=== PATIENT | male | born 1955 | race Caucasian/White ===

== ENCOUNTER → 2018-05-06 | Outpatient (CLI) | payer BC ==
[2018-05-06 10:42] LABS: BASOPHILS # (AUTO) 0.1 10^3/uL (0.0-0.1); BASOPHILS % (AUTO) 1 % (0-10); EOSINOPHILS # (AUTO) 0.3 10^3/uL (0.0-0.3); EOSINOPHILS % (AUTO) 5 % (0-10); HEMATOCRIT 42 % (40-54); HEMOGLOBIN 14.4 G/DL (13.3-17.7); LYMPHOCYTES # (AUTO) 1.7 X 10^3 (1.0-4.0); LYMPHOCYTES % (AUTO) 30 % (12-44); MEAN CORPUSCULAR HEMOGLOBIN 30 PG (25-34); MEAN CORPUSCULAR HGB CONC 34 G/DL (32-36); MEAN CORPUSCULAR VOLUME 86 FL (80-99); MEAN PLATELET VOLUME 9.3 FL (7.4-10.4); MONOCYTES # (AUTO) 0.5 X 10^3 (0.0-1.0); MONOCYTES % (AUTO) 10 % (0-12); NEUTROPHILS # (AUTO) 3.1 X 10^3 (1.8-7.8); NEUTROPHILS % (AUTO) 54 % (42-75); PLATELET COUNT 299 10^3/uL (130-400); RED BLOOD COUNT 4.88 10^6/uL (4.35-5.85); RED CELL DISTRIBUTION WIDTH 12.1 % (10.0-14.5); WHITE BLOOD COUNT 5.6 10^3/uL (4.3-11.0)
--- NOTE | 2018-05-06 12:26 | Diagnostic Imaging Report ---
PA and lateral chest at 1108 hours. INDICATION: Cough, congestion. There are no prior studies available for comparison. FINDINGS: Heart size is within normal limits. The lungs are clear. There is no evidence for failure, pneumonia or for pleural effusion to suggest an acute abnormality. On the PA view, however, there are 2 well-circumscribed roughly 2 cm oval densities overlying the left lung base. Reportedly, the patient has 2 cough lozenges in his shirt pocket. The mediastinum is not widened. The osseous structures are intact. IMPRESSION: 1. There is no evidence for an acute cardiopulmonary abnormality. 2. The 2 oval densities overlying the left lung base seen on the PA view are felt to be related to the cough lozenges in the patient's shirt pocket. Dictated by: Dictated on workstation # [id number]
== END ==
LOC: RAD 10:24
PROVIDERS: ATTEND Family Medicine
DX: R91.8 Other nonspecific abnormal finding of lung field (principal); R05 Cough
CPT/HCPCS: 36415; 71046; 85025

== ENCOUNTER → 2018-08-05 | Outpatient (CLI) | payer BC ==
--- NOTE | 2018-08-05 18:24 | Diagnostic Imaging Report ---
INDICATION: Fall with left-sided rib pain. AP and oblique views of the left ribs are obtained. There is no underlying pneumothorax or pleural fluid. The left ribs appear intact with no overt fracture. IMPRESSION: Negative left ribs. Dictated by: Dictated on workstation # [id number]
--- NOTE | 2018-08-05 18:29 | Diagnostic Imaging Report ---
INDICATION: Fall with pain in chest. PA and lateral chest obtained at 5:15 p.m. and compared to 05/06/2018. FINDINGS: Heart and mediastinal silhouette are normal in appearance. The lungs are clear. There is no pneumothorax or pleural fluid. There is no overt bony abnormality in the chest. IMPRESSION: Negative chest. Dictated by: Dictated on workstation # [id number]
== END ==
LOC: RAD 16:42
PROVIDERS: ATTEND Family Medicine
DX: R07.81 Pleurodynia (principal); R07.9 Chest pain, unspecified; R06.02 Shortness of breath; W19.XXXA Unspecified fall, initial encounter
CPT/HCPCS: 71046; 71100

== ENCOUNTER → 2018-12-01 | Outpatient (CLI) | payer BC ==
[~2018-12-01] VITALS: Ht 177.8 cm; Wt 84.4 kg
[~2018-12-01] MED LIST: CATHETER FLUSH 10 ML SYR IV PRN; REGADENOSON 0.4 MG/5 ML SYR (LEXISCAN) IV ONE
[2018-12-01 13:23] VITALS: BP 150/88
[2018-12-01 13:24] VITALS: BP 150/85
== END ==
LOC: CARD 11:48
PROVIDERS: ATTEND Internal Medicine Cardiovascular Disease
DX: I25.10 Atherosclerotic heart disease of native coronary artery without angina pectoris (principal); E11.9 Type 2 diabetes mellitus without complications; R06.02 Shortness of breath
CPT/HCPCS: 78452; 93017

== ENCOUNTER 2019-05-28 17:09 | Observation (INO) | payer BC ==
[2019-05-28] VITALS (7 sets, daily range): BP systolic 105–137; BP diastolic 70–86
[~2019-05-28] VITALS: Ht 70 cm; Wt 83.6 kg
--- NOTE | 2019-05-28 17:26 | ED Chest Pain ---
General Stated Complaint: CP Source: patient, family Exam Limitations: no limitations History of Present Illness Date Seen by Provider: May 28, 2019 Time Seen by Provider: 17:21 Initial Comments This 64-year-old white male presents with pressure type anterior chest pain that began an hour and half prior to presentation when supine. The patient who is diabetic described as a pressure type chest pain as severe in intensity. There is no remarkable radiation. Patient experienced associated shortness of breath. Patient denied significant radiation of his chest pain. The patient has had no associated fever or chills. He has been evaluated by cardiology with a cardiac scan but not a cardiac catherization. Patient states that he has had a great deal of stress recently. Allergies and Home Medications Allergies Coded Allergies: No Known Drug Allergies (Unverified , 03/08/15) Patient Home Medication List Home Medication List Reviewed: Yes Review of Systems Review of Systems Constitutional: No chills, No fever EENTM: No Blurred Vision Respiratory: Denies Cough, Denies SOA With Exertion Cardiovascular: See HPI, Chest Pain; Denies Irregular Heart Rate Gastrointestinal: Denies Abdominal Pain, Denies Diarrhea, Denies Vomiting Genitourinary: Denies Burning, Denies Frequency Musculoskeletal: No back pain Skin: No rash Psychiatric/Neurological: See HPI, Anxiety Past Kswyydo-Kzsgba-Outqtf Hx Past Med/Social Hx: Reviewed Nursing Past Med/Soc Hx Patient Social History Recent Foreign Travel: No Contact w/Someone Who Travel: No Past Medical History Diabetes, Insulin dep Physical Exam Vital Signs Vital Signs - First Documented Capillary Refill : Height, Weight, BMI Height: 5'10.00" Weight: 186lbs. 0.0oz. 84.799715vg; 26.7 BMI Method:Estimated General Appearance: WD/WN, Anxious, Moderate Distress HEENT: Normal ENT Inspection Neck: Normal Inspection Respiratory: Lungs Clear, Normal Breath Sounds Cardiovascular: Regular Rate, Rhythm, No Edema, No Murmur Gastrointestinal: Normal Bowel Sounds, No Pulsatile Mass, Non Tender, Soft Extremity: Normal Capillary Refill, Normal Inspection, Normal Range of Motion, Non Tender Neurologic/Psychiatric: Alert, Oriented x3, No Motor/Sensory Deficits, Normal Mood/Affect Skin: Normal Color, Warm/Dry Progress/Results/Core Measures Results/Orders Lab Results Laboratory Tests Test 05/28/19 17:15 05/28/19 17:16 Range/Units White Blood Count 10.1 4.3-11.0 10^3/uL Red Blood Count 5.58 4.35-5.85 10^6/uL Hemoglobin 16.3 13.3-17.7 G/DL Hematocrit 47 40-54 % Mean Corpuscular Volume 83 80-99 FL Mean Corpuscular Hemoglobin 29 25-34 PG Mean Corpuscular Hemoglobin Concent 35 32-36 G/DL Red Cell Distribution Width 12.5 10.0-14.5 % Platelet Count 361 130-400 10^3/uL Mean Platelet Volume 9.6 7.4-10.4 FL Neutrophils (%) (Auto) 46 42-75 % Lymphocytes (%) (Auto) 40 12-44 % Monocytes (%) (Auto) 11 0-12 % Eosinophils (%) (Auto) 2 0-10 % Basophils (%) (Auto) 1 0-10 % Neutrophils # (Auto) 4.7 1.8-7.8 X 10^3 Lymphocytes # (Auto) 4.0 1.0-4.0 X 10^3 Monocytes # (Auto) 1.2 H 0.0-1.0 X 10^3 Eosinophils # (Auto) 0.2 0.0-0.3 10^3/uL Basophils # (Auto) 0.1 0.0-0.1 10^3/uL Prothrombin Time 13.1 12.2-14.7 SEC INR Comment 1.0 0.8-1.4 Activated Partial Thromboplast Time 27 24-35 SEC D-Dimer 0.57 H 0.00-0.49 UG/ML Sodium Level 139 135-145 MMOL/L Potassium Level 3.9 3.6-5.0 MMOL/L Chloride Level 106 98-107 MMOL/L Carbon Dioxide Level 21 21-32 MMOL/L Anion Gap 12 5-14 MMOL/L Blood Urea Nitrogen 15 7-18 MG/DL Creatinine 1.18 0.60-1.30 MG/DL Estimat Glomerular Filtration Rate > 60 BUN/Creatinine Ratio 13 Glucose Level 367 H 70-105 MG/DL Calcium Level 9.6 8.5-10.1 MG/DL Corrected Calcium 9.4 8.5-10.1 MG/DL Magnesium Level 2.1 1.6-2.4 MG/DL Total Bilirubin 0.3 0.1-1.0 MG/DL Aspartate Amino Transf (AST/SGOT) 15 5-34 U/L Alanine Aminotransferase (ALT/SGPT) 18 0-55 U/L Alkaline Phosphatase 55 40-136 U/L Myoglobin 49.5 10.0-92.0 NG/ML Troponin I < 0.028 <0.028 NG/ML B-Type Natriuretic Peptide 27.4 <100.0 PG/ML Total Protein 7.5 6.4-8.2 GM/DL Albumin 4.3 3.2-4.5 GM/DL Glucometer 315 H 70-110 MG/DL My Orders Orders - CHRISTIANE, ANNABELLA Bowles MD Cbc With Automated Diff (05/28/19 17:17) Magnesium (05/28/19 17:17) Chest 1 View, Ap/Pa Only (05/28/19 17:17) Ekg Tracing (05/28/19 17:17) Cardiac Profile 1 (05/28/19 17:17) Comprehensive Metabolic Panel (05/28/19 17:17) Myoglobin Serum (05/28/19 17:17) Protime With Inr (05/28/19 17:17) Partial Thromboplastin Time (05/28/19 17:17) O2 (05/28/19 17:17) Monitor-Rhythm Ecg Trace Only (05/28/19 17:17) Lipid Panel (05/29/19 06:00) Ed Iv/Invasive Line Start (05/28/19 17:17) BNP (05/28/19 17:17) Fibrin Degradation Products (05/28/19 17:17) Nitroglycerin 0.4 Mg Btl 25's (Nitrostat (05/28/19 17:30) Aspirin Chewable Tablet (Baby Aspirin Ch (05/28/19 17:30) Ns Iv 1000 Ml (Sodium Chloride 0.9%) (05/28/19 17:30) Oxygen-Administer (05/28/19 17:17) Lorazepam Injection (Ativan Injection) (05/28/19 17:30) Medications Given in ED Current Medications Medications Dose Ordered Sig/Dante Route Start Time Stop Time Status Last Admin Dose Admin Aspirin 324 mg ONCE ONCE PO 05/28/19 17:30 05/28/19 17:31 DC 05/28/19 17:37 324 MG Lorazepam 1 mg ONCE ONCE IVP 05/28/19 17:30 05/28/19 17:31 DC 05/28/19 17:36 1 MG Nitroglycerin 0.4 mg UD PRN SL 05/28/19 17:30 05/28/19 17:37 0.4 MG Vital Signs/I&O 05/28/19 05/28/19 17:15 17:15 Temp 36.2 Pulse 103 Resp 28 B/P (MAP) 159/87 (111) Pulse Ox 100 O2 Delivery Nasal Cannula Nasal Cannula O2 Flow Rate 2.00 2.0 Progress Progress Note : Time: 17:25 Progress Note Patient's initial EKG demonstrated a normal sinus rhythm. No acute current of injury was noted. An evaluation was undertaken. Patient was given aspirin and nitroglycerin. The patient was having significant anxiety and 1 mg of Ativan IV was given. 625 p.m. The patient was significantly improved at the time of disposition. I called Dr. Seay who felt it was prudent to observe the patient overnight and perform an echo in the morning. Dr. Emmanuel was kind enough to admit the patient to cardiac stepdown. Departure Communication (Admissions) Time/Spoke to Admitting Phy: 18:26 Dr. Emmanuel Time/Spoke to Consulting Phy: 18:26 Dr. Seay. Impression Primary Impression: Chest pain Qualified Codes: R07.9 - Chest pain, unspecified Additional Impression: Diabetes mellitus Qualified Codes: E10.9 - Type 1 diabetes mellitus without complications Disposition: ADMITTED INPATIENT Condition: Improved Admissions Decision to Admit Reason: Admit from ER (General) Decision to Admit/Date: May 28, 2019 Time/Decision to Admit Time: 18:27 Departure-Patient Inst. Referrals: RICHI SHANNON DO (PCP/Family) Primary Care Physician ANNABELLA GRANDE MD May 28, 2019 17:25
[2019-05-28 17:28] LABS: BASOPHILS # (AUTO) 0.1 10^3/uL (0.0-0.1); BASOPHILS % (AUTO) 1 % (0-10); EOSINOPHILS # (AUTO) 0.2 10^3/uL (0.0-0.3); EOSINOPHILS % (AUTO) 2 % (0-10); HEMATOCRIT 47 % (40-54); HEMOGLOBIN 16.3 G/DL (13.3-17.7); LYMPHOCYTES % (AUTO) 40 % (12-44); MEAN CORPUSCULAR HEMOGLOBIN 29 PG (25-34); MEAN CORPUSCULAR HGB CONC 35 G/DL (32-36); MEAN CORPUSCULAR VOLUME 83 FL (80-99); MEAN PLATELET VOLUME 9.6 FL (7.4-10.4); MONOCYTES # (AUTO) 1.2 X 10^3 (0.0-1.0); MONOCYTES % (AUTO) 11 % (0-12); NEUTROPHILS # (AUTO) 4.7 X 10^3 (1.8-7.8); NEUTROPHILS % (AUTO) 46 % (42-75); PLATELET COUNT 361 10^3/uL (130-400); RED CELL DISTRIBUTION WIDTH 12.5 % (10.0-14.5); WHITE BLOOD COUNT 10.1 10^3/uL (4.3-11.0)
[2019-05-28] MEDS ORDERED: ASPIRIN 81 MG CHEW (CHILDREN'S ASA) PO ONE (17:30)
[2019-05-28] MEDS ORDERED: LORazepam INJ 2 MG/ML (ATIVAN) VIAL IVP ONE (17:30)
[2019-05-28] MEDS ORDERED: NS IV 1000 ML 1,000 ML IV SCH ×2 (17:30→20:00)
[2019-05-28] MEDS ORDERED: NITROGLYCERIN 0.4 MG SL TABS BTL 25'S SL PRN ×2 (17:30→20:00)
[2019-05-28 17:42] LABS: PROTHROMBIN TIME PATIENT 13.1 SEC (12.2-14.7)
[2019-05-28 17:45] LABS: ALANINE AMINOTRANSFERASE 18 U/L (0-55); ALBUMIN 4.3 GM/DL (3.2-4.5); ALKALINE PHOSPHATASE 55 U/L (40-136); BILIRUBIN,TOTAL 0.3 MG/DL (0.1-1.0); BUN/CREATININE RATIO 13; CALCIUM 9.6 MG/DL (8.5-10.1); CARBON DIOXIDE 21 MMOL/L (21-32); CHLORIDE 106 MMOL/L (98-107); CREATININE SERUM 1.18 MG/DL (0.60-1.30); GFR ESTIMATED > 60; GLUCOSE 367 MG/DL (70-105); MAGNESIUM 2.1 MG/DL (1.6-2.4); POTASSIUM 3.9 MMOL/L (3.6-5.0); SODIUM 139 MMOL/L (135-145); TOTAL PROTEIN 7.5 GM/DL (6.4-8.2)
[2019-05-28] MEDS ORDERED: INSU100V16 (17:57)
[2019-05-28] MEDS ORDERED: INSU100I29 (17:57)
--- NOTE | 2019-05-28 18:20 | Diagnostic Imaging Report ---
INDICATION: Chest pressure with shortness of air today. FINDINGS: Frontal view of the chest demonstrates the lungs to be clear. Heart, mediastinum, pulmonary vascularity and visualized bony thorax are normal. IMPRESSION: Negative chest. Dictated by: Dictated on workstation # [id number]
[2019-05-28] MEDS ORDERED: NITROGLYCERIN 2% OINT 1 GM UNIT DOSE PACKET TOP NR (20:00)
[2019-05-28] MEDS ORDERED: TICAGRELOR 90 MG TABLET (BRILINTA) PO NR (20:00)
[2019-05-28] MEDS ORDERED: LORazepam INJ 2 MG/ML (ATIVAN) VIAL IV PRN (20:00)
--- NOTE | 2019-05-28 20:00 | NUR ---
DEVON JOYNER admitted to room CU3-1, with an admitting diagnosis of chest pain, on 05/28/19 from [place] via , accompanied by .DEVON JOYNER introduced to surroundings, call light, bed controls, phone, TV, temperature control, lights, meal times, smoking policy, visitor policy, side rail policy, bathrooms and showers. Patient Rights given to patient in the handbook. DEVON JOYNER verbalizes understanding that [facility] is not responsible for the loss or damage to any personal effects or valuables that are kept in the patients posession during their hospitalization. The following Patient Care Plans were discussed with the : Discharge Planning, ,, and . DEVON JOYNER verbalizes understanding of Interdisciplinary Patient Education. Patient and/or family were informed about the Rapid Response Team and its purpose.
[2019-05-28] MEDS: inSUlin ASPART (NovoLOG) 1 UNIT/0.01 ML (CHARGE PER UNIT) SC SCH (21:15)
[2019-05-29] VITALS: BP 114/79
[2019-05-29 03:35] LABS: CHOLESTEROL 164 MG/DL (< 200); CREATINE KINASE 106 U/L (30-200); HDL CHOLESTEROL 39 MG/DL (40-60); TRIGLYCERIDES 73 MG/DL (<150); VLDL CHOLESTEROL 15 MG/DL (5-40)
[2019-05-29 04:00] VITALS: BP 131/87
[2019-05-29] MEDS ORDERED: inSUlin ASPART (NovoLOG) 1 UNIT/0.01 ML (CHARGE PER UNIT) SC SCH (06:00)
[2019-05-29] MEDS: inSUlin ASPART (NovoLOG) 1 UNIT/0.01 ML (CHARGE PER UNIT) SC SCH ×2 (06:57→12:41)
[2019-05-29 08:00] VITALS: BP 114/65
--- NOTE | 2019-05-29 08:35 | NUR ---
PT REQUEST BLOOD SUGAR CHECK BECAUSE HE THINKS ITS LOW, BLOOD SUGAR 53, PT NPO, D50 SYRINGE GIVEN AT THIS TIME. WILL CONTINUE TO MONITOR AND RECHECK BLOOD SUGAR.
[2019-05-29] MEDS ORDERED: DEXTROSE 50% 50 ML (IMS) SYR IV ONE (08:45)
[2019-05-29] MEDS ORDERED: ASPIRIN E.C. 81 MG (ECOTRIN) TAB PO SCH (09:00)
--- NOTE | 2019-05-29 12:23 | Short Stay Summary-Hospitalist ---
History of Present Illness HPI/Chief Complaint Pt is a 64yoCM with a PMH of IDDMI who presented to the ER due to shortness of breath. He states his symptoms started roughly 6 months ago and they were worked up for a cardiac cause with Dr Bhatti. He had an echo and a stress test and those were all normal. They went away for a while but two weeks ago he had intermittent dyspnea. Yesterday he was outside with his son working and suddenly developed shortness of breath and fell backward. He did not lose consciousness. He did not have chest pain, nausea, diaphoresis, or radiation of symptoms. He did feel anxious. He reports his blood sugars and normally ok but his a1c runs around 8-9. Source: patient Date Seen 05/29/19 Time Seen by a Provider: 12:18 Attending Physician Teddy Emmanuel MD PCP Marcin Sheffield DO Referring Physician Date of Admission May 28, 2019 at 18:15 Home Medications & Allergies Home Medications Reviewed patient Home Medication Reconciliation performed by pharmacy medication reconciliations hospital pharmacy technician and/or nursing. Patients Allergies have been reviewed. Allergies Allergies Coded Allergies No Known Drug Allergies (Unverified03/08/15) Past Pawopge-Mhgnvy-Ewiakl Hx Past Med/Social Hx: Reviewed Nursing Past Med/Soc Hx Patient Social History Marrital Status: Alcohol Use: Denies Use Recreational Drug Use: No Smoking Status: Never a Smoker Recent Foreign Travel: No Contact w/other who traveled: No Recent Hopitalizations: No Recent Infectious Disease Expo: No Past Medical History Surgeries: Abdominal, Orthopedic Endocrine: Diabetes, Insulin dep (type 1) Family History Reviewed Nursing Family Hx No Pertinent Family Hx Review of Systems Constitutional: No diaphoresis, No dizziness, No weakness EENTM: no symptoms reported Respiratory: No cough, No dyspnea on exertion, No hemoptysis, No phlegm; short of breath; No wheezing Cardiovascular: No chest pain, No edema, No Hx of Intervention, No palpitations, No syncope Gastrointestinal: no symptoms reported Genitourinary: no symptoms reported Musculoskeletal: no symptoms reported Skin: no symptoms reported Psychiatric/Neurological: Anxiety Physical Exam Physical Exam Vital Signs Vital Signs - First Documented 05/28/19 17:15 FiO2 99 Capillary Refill : Less Than 3 Seconds Height, Weight, BMI Height: 5'10.00" Weight: 186lbs. 0.0oz. 84.497247ax; 170.61 BMI Method:Estimated General Appearance: No Apparent Distress, WD/WN, Anxious HEENT: Normal ENT Inspection Neck: Normal Inspection Respiratory: Lungs Clear, Normal Breath Sounds Cardiovascular: Regular Rate, Rhythm, No Edema, No Murmur Gastrointestinal: Normal Bowel Sounds, Non Tender, Soft; No Distended, No Guarding, No Tenderness Extremity: Normal Capillary Refill, Normal Inspection, Normal Range of Motion, Non Tender Neurologic/Psychiatric: Alert, Oriented x3, Normal Mood/Affect Skin: Normal Color, Warm/Dry Results Results/Procedures Labs Laboratory Tests 05/28/19 17:15 Patient resulted labs reviewed. Imaging: Reviewed Imaging Report Short Stay Diagnosis Discharge Diagnosis-Short Stay Admission Diagnosis Shortness of Breath Final Discharge Diagnosis Panic Attack Conclusion Plan Shortness of breath Likely due to panic attack Given history of poorly controlled DM observed overnight troponins negative echo ordered Discussed with Cardiology who agrees this is likely related to anxiety Will start on hydroxyzine and advised to follow up with his PCP Dr Sheffield Can DC home in echo normal Clinical Quality Measures AMI/AHF: ASA po Prior to arrival: No DVT/VTE Risk/Contraindication: Risk Factor Score Per Nursin RFS Level Per Nursing on Admit: 2=Moderate TEDDY EMMANUEL MD May 29, 2019 12:23
[2019-05-29] MEDS ORDERED: hydrOXYzine (ATARAX) 10 MG TAB PO PRN (12:30)
[2019-05-29] MEDS ORDERED: HYDR-3584 PO (12:32)
--- NOTE | 2019-05-29 12:34 | Discharge Inst-Simple/Standard ---
Discharge Inst-Standard Discharge Medications New, Converted or Re-Newed RX: Transmitted to Pharmacy Patient Instructions/Follow Up Plan of Care/Instructions/FU: Please continue to your medication at written. Please follow up with your PCP in 1 week. Activity as Tolerated: Yes Discharge Diet: ADA Diet Return to The Hospital For: Chest pain, SOB, if you feel you are getting worse. Planned Outpatient Orders/Ref. Pneu Vac Indicated: Yes TEDDY DIAZ MD May 29, 2019 12:34
--- NOTE | 2019-05-29 13:28 | Consultation-Cardiology ---
HPI-Cardiology Cardiology Consultation: Date of Consultation 05/29/19 Date of Admission Attending Physician Ilene Emmanuel MD Admitting Physician Marcin Sheffield DO Consulting Physician Jesse SEAY MD HPI: Time Seen by a Provider: 12:00 Chief Complaint: Shortness of breath, chest pressure This is a 64-year-old gentleman who sees Dr. Bhatti as an outpatient. He presents with complain of shortness of breath with chest tightness. He has history of diabetes. He denies smoking. No significant family history. He had a negative nuclear stress test in December 2018. Substernal chest pressure mild to moderate intensity. No radiation. No exacerbation or relieving factors. No associated syncope, near-syncope. Associated with shortness of breath. Significant stress recently. Review of Systems-Cardiology Review of Systems Constitutional: As described under HPI; No As described under HPI, No no symptoms reported, No chills, No fever, No lightheadedness Eyes: No As described under HPI, No no symptoms reported, No blindness, No blurred vision, No contact lenses, No drainage, No decreased acuity, No foreign body sensation, No pain, No vision change Ears/Nose/Throat: No As described under HPI, No no symptoms reported, No chronic hearing loss, No ear discharge, No ear pain, No nasal drainage, No ulcerations Respiratory: No no symptoms reported; As described under HPI; No As described under HPI, No cough, No orthopnea; shortness of breath; No SOB with excertion Cardiovascular: No no symptoms reported; As described under HPI; No As described under HPI; chest pain; No edema, No irregular heart rate, No lightheadedness, No palpitations Gastrointestinal: No no symptoms reported, No As described under HPI, No abdomen distended, No abdominal pain, No blood streaked bowels, No constipation, No diarrhea, No nausea, No vomiting, No stool coloration changes Genitourinary: No As described under HPI, No burning, No dysuria, No discharge, No frequency, No flank pain, No hematuria, No urgency Skin: No rash, No skin related problems, No ulcerations Psychiatric/Neurological: No anxiety, No depression, No seizure, No focal weakness, No syncope Hematologic: No bleeding abnormalities CAM-Ksahkd-Eldzpr Hx Patient Social History Marrital Status: Alcohol Use: Denies Use Recreational Drug Use: No Smoking Status: Never a Smoker Recent Foreign Travel: No Recent Infectious Disease Expo: No Hospitalization with Isolation: Denies Past Medical History PMH As described under Assessment. Allergies and Home Medications Allergies Coded Allergies: No Known Drug Allergies (Unverified , 03/08/15) Patient Home Medication List Home Medication List Reviewed: Yes Physical Exam-Cardiology Physical Exam Vital Signs/I&O 05/29/19 05/29/19 05/29/19 05/29/19 04:00 04:00 04:00 07:00 Temp 36.4 Pulse 89 74 Resp 20 B/P (MAP) 131/87 (102) Pulse Ox 99 99 O2 Delivery Room Air Room Air FiO2 99 05/29/19 05/29/19 05/29/19 05/29/19 08:00 08:00 08:00 12:00 Temp 36.2 36.4 Pulse 78 71 Resp 14 19 B/P (MAP) 114/65 (81) Pulse Ox 99 100 O2 Delivery Room Air Room Air Room Air Room Air 05/29/19 00:00 Intake Total 1250 ml Output Total 400 ml Balance 850 ml Capillary Refill : Less Than 3 Seconds Constitutional: appears stated age, AAO x 3; No apparent distress; well- developed, well-nourished HEENT: PERRL; No discharge; hearing is well preserved, oral hygience is good; No ulceration, No xanthelasmas are seen Neck: No carotid bruit; carotid pulses are 2 + bilaterally Respiratory: chest is bilaterally symmetric, lungs clear to auscultation Cardiovascular: regular rate-rhythm, S1 and S2 Gastrointestinal: soft, round, audible bowel sounds; No spleenomegaly Rectal: deferred Extremities: normal range of motion, non-tender, normal inspection; No clubbing, No cyanosis; no lower extremity edema bilateral; No significant edema Neurologic/Psychiatric: no motor/sensory deficits, alert, normal mood/affect, oriented x 3, power is 5/5 both on sides Skin: normal color; No rash, No ulcerations Data Review Labs Laboratory Tests 05/28/19 17:15: White Blood Count 10.1, Red Blood Count 5.58, Hemoglobin 16.3, Hematocrit 47, Mean Corpuscular Volume 83, Mean Corpuscular Hemoglobin 29, Mean Corpuscular Hemoglobin Concent 35, Red Cell Distribution Width 12.5, Platelet Count 361, Mean Platelet Volume 9.6, Neutrophils (%) (Auto) 46, Lymphocytes (%) (Auto) 40, Monocytes (%) (Auto) 11, Eosinophils (%) (Auto) 2, Basophils (%) (Auto) 1, Neutrophils # (Auto) 4.7, Lymphocytes # (Auto) 4.0, Monocytes # (Auto) 1.2H, Eosinophils # (Auto) 0.2, Basophils # (Auto) 0.1, Prothrombin Time 13.1, INR Comment 1.0, Activated Partial Thromboplast Time 27, D-Dimer 0.57H, Sodium Level 139, Potassium Level 3.9, Chloride Level 106, Carbon Dioxide Level 21, Anion Gap 12, Blood Urea Nitrogen 15, Creatinine 1.18, Estimat Glomerular Filtration Rate > 60, BUN/Creatinine Ratio 13, Glucose Level 367H, Calcium Level 9.6, Corrected Calcium 9.4, Magnesium Level 2.1, Total Bilirubin 0.3, Aspartate Amino Transf (AST/SGOT) 15, Alanine Aminotransferase (ALT/SGPT) 18, Alkaline Phosphatase 55, Myoglobin 49.5, Troponin I < 0.028, B-Type Natriuretic Peptide 27.4, Total Protein 7.5, Albumin 4.3 05/28/19 17:16: Glucometer 315H 05/28/19 21:08: Glucometer 305H 05/28/19 21:10: Troponin I < 0.028 05/29/19 03:03: Total Creatine Kinase 106, Triglycerides Level 73, Cholesterol Level 164, LDL Cholesterol Direct 114, VLDL Cholesterol 15, HDL Cholesterol 39L 05/29/19 06:35: Glucometer 82 05/29/19 08:32: Glucometer 53*L 05/29/19 09:07: Glucometer 103 05/29/19 11:24: Glucometer 71 ECG Impression ECG Initial ECG Rhythm: Normal Sinus Initial ECG Impression: Normal A/P-Cardiology Assessment/Admission Diagnosis Shortness of breath, chest pain, positive D dimer, diabetes Plan Shortness of breath, negative BNP. Not in florid congestive heart failure. Will recommend an echocardiogram. chest pain, serial troponin negative. Recent nuclear stress test which is negative. I discussed at length with the patient. He can be discharged to follow-up with Dr. Bhatti on Friday. positive D dimer, oxygen saturation 99 percent on room air. Normal heart rate. Very unlikely pulmonary embolism. diabetes, continue outpatient medical therapy. Thank you for your consultation. Please call me if you have any questions. Kim Seay MD, FACP, FACC, FSCAI, FHRS, CCDS Interventional Cardiology Cardiac Electrophysiology Vascular Medicine and Endovascular Interventions Clinical Quality Measures AMI/AHF: ASA po Prior to arrival: No DVT/VTE Risk/Contraindication: Risk Factor Score Per Nursin RFS Level Per Nursing on Admit: 2=Moderate Jesse SEAY MD May 29, 2019 13:28
== END 2019-05-29 12:34 | disposition home or self-care (01) ==
LOC: EDUNIT# 17:09 → ER 17:09 → ICU 18:15 → UNDOADMOB 18:15 → ICU 19:42 → UNDODISOB 05-29 14:40
PROVIDERS: ADMIT Family Medicine; ATTEND Family Medicine
DX: F41.0 Panic disorder [episodic paroxysmal anxiety] (principal); I08.1 Rheumatic disorders of both mitral and tricuspid valves; E10.9 Type 1 diabetes mellitus without complications; Z79.4 Long term (current) use of insulin
CPT/HCPCS: 36415; 71045; 80053; 80061; 82550; 82962; 83735; 83874; 83880; 84484; 85025; 85379; 85610; 85730; 93005; 93041; 93306; 96361; 96374

== ENCOUNTER → 2019-08-12 | Outpatient (CLI) | payer BC ==
[~2019-08-12] MED LIST changes: -CATHETER FLUSH 10 ML SYR IV PRN; +HYDR-3584 PO; +INSU100I29; +INSU100V16; -REGADENOSON 0.4 MG/5 ML SYR (LEXISCAN) IV ONE
--- NOTE | 2019-08-12 10:48 | Diagnostic Imaging Report ---
PA and lateral chest at 1034 hours. INDICATION: Congestion. FINDINGS: The heart size is within normal limits and stable compared to 05/28/2019. The lungs are clear. There is no evidence for failure, pneumonia or for pleural effusion. The mediastinum is not widened. The osseous structures are intact. IMPRESSION: There is no evidence for active disease. Dictated by: Dictated on workstation # [id number]
== END ==
LOC: RAD 09:52
PROVIDERS: ATTEND Family Medicine
DX: R05 Cough (principal); R09.81 Nasal congestion
CPT/HCPCS: 71046

== ENCOUNTER 2020-09-04 08:31 | Emergency (ER) | payer BC ==
[~2020-09-04] VITALS: Ht 172 cm; Wt 85.0 kg
[2020-09-04] MEDS ORDERED: TETANUS,DIPTH,PERTUSS P/F (BOOSTRIX) 0.5 ML VIAL IM ONE (09:00)
--- NOTE | 2020-09-04 09:06 | ED Upper Extremity ---
General Chief Complaint: Laceration Stated Complaint: LACERATION LEFT THUMB Nursing Triage Note: patient states yesterday was cutting wood, wearing leather glove, patient states blade cut through glove and into left thumb. cleaned wound and put black tarry stuff on area and neosporin. denies previous occurrences Nursing Sepsis Screen: No Definite Risk Source: patient Exam Limitations: no limitations (RENEE WARREN) History of Present Illness Date Seen by Provider: Sep 04, 2020 Time Seen by Provider: 09:00 Onset: yesterday Severity: mild Pain/Injury Location: left thumb (superficial over IP joint, no bone involvement) Method of Injury: incised Modifying Factors: Improves With Movement (painful to move) Associated Symptoms: tender to palpate and move (RENEE WARREN) Allergies and Home Medications Allergies Coded Allergies: No Known Drug Allergies (Unverified , 03/08/15) Home Medications Hydroxyzine HCl 10 Mg Tablet, 10 MG PO TID PRN for anxiety Prescribed by: TEDDY DIAZ on 05/29/19 1234 Sulfamethoxazole/Trimethoprim 1 Each Tablet, 1 EACH PO BID Prescribed by: JULIANE ANGELES on 09/04/20 0913 Patient Home Medication List Home Medication List Reviewed: Yes (JULIANE WALLACE MD) Review of Systems EENTM: no symptoms reported Respiratory: no symptoms reported Cardiovascular: no symptoms reported Gastrointestinal: no symptoms reported Genitourinary: no symptoms reported Musculoskeletal: see HPI Skin: see HPI Psychiatric/Neurological: No Symptoms Reported (JULIANE WALLACE MD) Past Ijochrm-Ibxwpc-Ewaxvz Hx Past Med/Social Hx: Reviewed Nursing Past Med/Soc Hx (JULIANE WALLACE MD) Patient Social History Alcohol Use: Denies Use Recreational Drug Use: No Smoking Status: Never a Smoker 2nd Hand Smoke Exposure: No Recent Foreign Travel: No Contact w/Someone Who Travel: No Recent Infectious Disease Expo: No Recent Hopitalizations: No Physical Abuse: No Sexual Abuse: No Mistreated: No (RENEE WARREN) Immunizations Up To Date Tetanus Booster (TDap): Unknown Date of Influenza Vaccine: Jun 01, 2020 (RENEE WARREN) Past Medical History Surgeries: Yes (back, hernia) Abdominal (double hernia repair), Orthopedic (double shoulder and back) Respiratory: No Cardiac: No Neurological: No Gastrointestinal: No Musculoskeletal: No Endocrine: Yes Diabetes, Insulin dep Cancer: No Psychosocial: No (RENEE WARREN STUDENT) Family Medical History No Pertinent Family Hx (RENEE WARREN STUDENT) Physical Exam Vital Signs Vital Signs - First Documented 09/04/20 08:42 Temp 36.9 Pulse 78 Resp 20 B/P (MAP) 159/82 (107) Pulse Ox 97 O2 Delivery Room Air (JULIANE WALLACE MD) Vital Signs Capillary Refill : Less Than 3 Seconds (RENEE WARREN STUDENT) Height, Weight, BMI Height: 5'10.00" Weight: 186lbs. 0.0oz. 84.618568zg; 28.00 BMI Method:Estimated General Appearance: WD/WN, no apparent distress HEENT: PERRL/EOMI Cardiovascular: regular rate, rhythm Respiratory: lungs clear, normal breath sounds, no respiratory distress, no accessory muscle use Hand: laceration (superficial over IP joint. slight blood), limited ROM (in thumb, hurts to flex fully but can still flex) Neurologic/Tendon: normal sensation, responds to pain, no evidence tendon injury Neurologic/Psychiatric: alert, normal mood/affect, oriented x 3 (RENEE WARREN STUDENT) Progress/Results/Core Measures Results/Orders My Orders (JULIANE WALLACE MD) Medications Given in ED (JULIANE WALLACE MD) Vital Signs/I&O (JULIANE WALLACE MD) Blood Pressure Mean: 107 Departure Impression Primary Impression: Laceration of left thumb Qualified Codes: S61.012A - Laceration without foreign body of left thumb without damage to nail, initial encounter Disposition: 01 HOME, SELF-CARE Condition: Stable Departure-Patient Inst. Decision time for Depature: 09:11 (JULIANE WALLACE MD) Referrals: RICHI SHANNON DO (PCP/Family) Primary Care Physician Patient Instructions: Laceration Infection Add. Discharge Instructions: Keep your wound covered when active or in dirty environments until it scabs o ursula. Otherwise you may leave it open to air. You may wash your hands and shower, but otherwise avoid submersion until it heals over. Complete your prophylactic antibiotics as prescribed. Return to care if you have any problems or complications including signs of infection which may include increasing redness, increasing pain, puslike drainage, or fever. All discharge instructions reviewed with patient and/or family. Voiced understanding. Scripts Sulfamethoxazole/Trimethoprim (Bactrim Ds Tablet) 1 Each Tablet 1 EACH PO BID, #10 TAB Prov: JULIANE WALLACE MD 09/04/20 RENEE WARREN MED STUDENT Sep 04, 2020 09:06 JULIANE WALLACE MD Sep 04, 2020 09:13
[2020-09-04] MEDS ORDERED: SULF1TAB35 PO (09:13)
[2020-09-04 09:42] VITALS: BP 142/87
== END 2020-09-04 09:42 | disposition home or self-care (01) ==
LOC: EDUNIT# 08:31 → ER 08:34
DX: S61.012A Laceration without foreign body of left thumb without damage to nail, initial encounter (principal); Z23 Encounter for immunization; W26.8XXA Contact with other sharp object(s), not elsewhere classified, initial encounter
CPT/HCPCS: 90715

== ENCOUNTER 2021-01-09 06:22 | Outpatient (CLI) | payer BC ==
[~2021-01-09] VITALS: Ht 177.8 cm; Wt 88.5 kg
[~2021-01-09 06:22] MED LIST changes: -INSU100I29; +INSU100I29 SQ; -INSU100V16; +INSU100V16 SQ; +SULF1TAB35 PO
[2021-01-09] MEDS ORDERED: ALPR0.254 PO (11:52)
[2021-01-09] MEDS ORDERED: ESCI-2 PO (11:52)
[2021-01-09] MEDS ORDERED: INSU100I29 SQ (11:52)
[2021-01-09] MEDS ORDERED: ASPI-999 PO (11:52)
[2021-01-09] MEDS ORDERED: ATOR10TA66 PO (11:57)
== END 2021-01-09 12:06 | disposition home or self-care (01) ==
LOC: PREOP 06:22
PROVIDERS: ATTEND Surgery
DX: Z01.818 Encounter for other preprocedural examination (principal)

== ENCOUNTER 2021-01-12 06:10 | Day surgery (SDC) | payer BC ==
[~2021-01-12] VITALS: Ht 177.8 cm; Wt 88.5 kg
[2021-01-12] VITALS (12 sets, daily range): BP systolic 135–192; BP diastolic 76–99
[~2021-01-12 06:10] MED LIST changes: +ALPR0.254 PO; +ASPI-999 PO; +ATOR10TA66 PO; +ESCI-2 PO
[2021-01-12] MEDS ORDERED: ceFAZolin 2 GM IV Premixed 50 ML IV ONE (06:45)
[2021-01-12] MEDS ORDERED: ONDANSETRON 4 MG/2 ML (SDV) Z0FRAN IV ONE (06:45)
[2021-01-12] MEDS ORDERED: FAMOTIDINE 20MG/2ML IV (PEPCID) IV ONE (06:45)
[2021-01-12] MEDS: LACTATED RINGERS 1,000 ML IV PRN ×2 (06:52→09:50)
[2021-01-12] MEDS ORDERED: LIDOCAINE/EPI 1%-1:100,000 (XYLOCAINE) 20ML ONE (07:08)
[2021-01-12] MEDS ORDERED: fentaNYL INJ 100 MCG/2 ML AMP ONE (07:43)
[2021-01-12] MEDS ORDERED: LIDOCAINE PF 2% 5 ML (XYLOCAINE) VIAL ONE (07:43)
[2021-01-12] MEDS ORDERED: GLYCOPYRROLATE 0.2 MG/ML (ROBINUL) 2 ML VIAL ONE (07:43)
[2021-01-12] MEDS ORDERED: proPOfol 200 MG/20 ML (DIPRIVAN) VIAL IV ONE (07:43)
[2021-01-12] MEDS ORDERED: ONDANSETRON 4 MG/2 ML (SDV) Z0FRAN ONE (07:43)
[2021-01-12] MEDS ORDERED: MIDAZOLAM 2 MG/2 ML (VERSED) VIAL ONE (07:43)
[2021-01-12] MEDS ORDERED: SEVOFLURANE (ULTANE) 15 ML INHAL SOLN ONE (07:43)
[2021-01-12] MEDS ORDERED: NEOSTIGMINE 3 MG/3 ML VIAL ONE (07:43)
--- NOTE | 2021-01-12 07:57 | Progress Note-Pre Operative ---
Pre-Operative Progress Note H&P Reviewed The H&P was reviewed, patient examined and no changes noted. Date Seen by Provider: January 12, 2021 Time Seen by Provider: 07:57 Date H&P Reviewed: January 12, 2021 Time H&P Reviewed: 07:57 Pre-Operative Diagnosis: umbilical hernia ABDIAZIZ AVILA DO January 12, 2021 07:57
[2021-01-12] MEDS ORDERED: HYDROmorphone 2 MG/ML VIAL (DILAUDID) ONE (08:30)
--- NOTE | 2021-01-12 08:46 | Progress Note-Post Operative ---
Post-Operative Progess Note Surgeon (s)/Forensic Accountant (s) Surgeon ABDIAZIZ AVILA DO Forensic Accountant: Dr. Villafana to assist in retraction dissection and closure. Pre-Operative Diagnosis umbilical hernia Post-Operative Diagnosis incarcerated umbilical hernia Procedure & Operative Findings Date of Procedure 01/12/21 Procedure Performed/Findings PROCEDURE: Laparoscopic incarcerated umbilical hernia repair with mesh. COMPLICATIONS: None. INDICATIONS: The patient is a 65, male with an umbilical hernia, which has continued to increase in size and cause discomfort. The patient was explained the risk and benefits of the procedure and wished to proceed with the procedure. Consent was signed on the chart. DESCRIPTION OF PROCEDURE: The patient was taken into the operating suite, prepped and draped in sterile fashion. Surgical pause was performed. Local anesthetic was infiltrated in left upper quadrant. A 15 blade scalpel was used to make a small skin incision. Cautery was used to dissect down to the fascia, which was then scored and divided the muscle, went through the posterior sheath and a balloon trocar was inserted into the abdomen. The abdomen was then insufflated. A 5 mm trocar was placed in the right lower quadrant and a 5 mm trocar was placed in left lower quadrant. Incarcerated fat through umbilical defect. This was dissected free and removed. The 4.5 inch Echo Ventralight mesh was then inserted in the abdomen grabbed through the stab incision. The balloon was inflated on the mesh. Circumferential tacks were placed with a SecureStrap Tacker. The balloon was then removed and inner crown was created as well. The mesh was tacked with pressure being decreased. The 12 mm fascial defect was then closed using 0 Vicryl. The abdomen was then desufflated,the trocars were removed. The skin was then closed using 4-0 Monocryl in a running subcuticular fashion. The abdomen was washed and dried and Skin Affix was placed over the incisions. The patient tolerated procedure well without any complications. She was taken to recovery room in stable condition. Anesthesia Type general Estimated Blood Loss Estimated blood loss (mL): minimal Specimens/Packing Specimens Removed hernia contents ABDIAZIZ AVILA DO January 12, 2021 08:46
[2021-01-12] MEDS ORDERED: ACHD5005 PO (08:48)
[2021-01-12] MEDS ORDERED: DOCU-143 PO (08:48)
--- NOTE | 2021-01-12 08:51 | Discharge Inst-Simple/Standard ---
Discharge Inst-Standard Discharge Medications New, Converted or Re-Newed RX: Transmitted to Pharmacy Patient Instructions/Follow Up Plan of Care/Instructions/FU: 2-3 weeks Faustino Activity as Tolerated: No Discharge Diet: Regular Diet Other Inst to Patient Follow up Appt: Make appointment for 2 week. Instructions: No lifting greater than 10 pounds. No strenuous activity. May shower in 24 hours, no tub bath or soaking. Use incentive spirometer at home as directed. No Smoking Skin/Wound Care: You have special glue over your incision that will fall off on it's own. You have a special packing at umbilicus, remove that bandage and gauze in 48 hours, leave the glue. Symptoms to Report: Appetite Changes, Extremity Discoloration, Numbness/Tingling, Swelling Increased, Bleeding Excessive, Eyesight Changes, Pain Increased, Urine Color Change, Constipation(Persistent), Fever over 101 degree F, Pain/Pressure in chest, Urinating Difficulty, Cough Up/Vomit Blood, Heart Beat Irreg/Pounding, Pain/Pressure in jaw, Vaginal Bleeding Increase, Cramps in feet or legs, Lightheadedness, Pain/Pressure in shoulder, Diarrhea(Persistent), Memory Changes Suddenly, Questions/Concerns, Weight gain consecutive days, Dizziness/Fainting, Nausea/Vomiting, Shortness of Breath, Weight gain over 2 pounds If questions or concerns contact your physician Or seek help at emergency department. ABDIAZIZ AVILA DO January 12, 2021 08:51
[2021-01-12] MEDS ORDERED: HYDROmorphone 2 MG/ML VIAL (DILAUDID) IV ONE (09:15)
[2021-01-12] MEDS ORDERED: morphine INJ 10 MG/ML 1ML (SYR OR VIAL) IVP ONE (09:15)
[2021-01-12] MEDS ORDERED: ONDANSETRON 4 MG/2 ML (SDV) Z0FRAN IVP PRN (09:15)
[2021-01-12] MEDS ORDERED: HYDROcodone/APAP 5 MG/325 MG (LORTAB) TAB ONE (10:03)
[2021-01-12] MEDS ORDERED: HYDROcodone/APAP 5 MG/325 MG (LORTAB) TAB PO ONE (10:15)
--- NOTE | 2021-01-18 14:32 | Anesthesia-General Post-Op ---
General Patient Condition Mental Status/LOC: Same as Preop Cardiovascular: Satisfactory Nausea/Vomiting: Absent Respiratory: Satisfactory Pain: Controlled Complications: Absent Post Op Complications Complications None Follow Up Care/Instructions Patient Instructions None needed. Anesthesia/Patient Condition Patient Condition Post-dated progress note: Patient was seen on 01-12 at approximately 1000 after the procedure and he was doing well, no complaints, stable vital signs, no apparent adverse anesthesia problems. JENELLE BREWER DO January 18, 2021 14:32
== END 2021-01-12 11:27 ==
LOC: SDC 06:10
PROVIDERS: ATTEND Surgery
DX: K42.0 Umbilical hernia with obstruction, without gangrene (principal); E78.5 Hyperlipidemia, unspecified; E11.9 Type 2 diabetes mellitus without complications; I25.10 Atherosclerotic heart disease of native coronary artery without angina pectoris; Z79.82 Long term (current) use of aspirin; Z79.899 Other long term (current) drug therapy; Z79.4 Long term (current) use of insulin; Z83.6 Family history of other diseases of the respiratory system
CPT/HCPCS: 49653; 82947; 87081; 94664; C1781

== ENCOUNTER 2022-11-18 15:07 | Emergency (ER) | payer MEDICARE ==
[~2022-11-18] VITALS: Ht 177 cm; Wt 84.0 kg
[~2022-11-18 15:07] MED LIST changes: +ACHD5005 PO; +DOCU-143 PO; -INSU100I29 SQ; +INSU100I30 SQ; -SULF1TAB35 PO; +SULF1TAB38 PO
[2022-11-18] MEDS ORDERED: TETANUS,DIPTH,PERTUSS P/F (BOOSTRIX) 0.5 ML VIAL IM ONE (15:30)
[2022-11-18] MEDS ORDERED: LACTATED RINGERS 1,000 ML IV ONE (15:30)
--- NOTE | 2022-11-18 15:34 | Diagnostic Imaging Report ---
Indication: Chemical exposure. Frontal chest obtained at 03:14 p.m. and compared to 08/12/2019. Heart and mediastinal silhouette are normal in appearance. The lungs are clear. There is no pneumothorax or pleural fluid. IMPRESSION: Negative chest. Dictated by: Dictated on workstation # [id number]
[2022-11-18 15:35] LABS: BASOPHILS % (AUTO) 0 % (0-10); EOSINOPHILS # (AUTO) 0.1 10^3/uL (0.0-0.3); EOSINOPHILS % (AUTO) 1 % (0-10); HEMATOCRIT 35 % (40-54); HEMOGLOBIN 11.4 g/dL (13.3-17.7); LYMPHOCYTES # (AUTO) 1.7 X 10^3 (1.0-4.0); LYMPHOCYTES % (AUTO) 25 % (12-44); MEAN CORPUSCULAR HEMOGLOBIN 30 pg (25-34); MEAN CORPUSCULAR HGB CONC 33 g/dL (32-36); MEAN CORPUSCULAR VOLUME 90 fL (80-99); MEAN PLATELET VOLUME 9.1 fL (9.0-12.2); MONOCYTES # (AUTO) 0.7 X 10^3 (0.0-1.0); MONOCYTES % (AUTO) 11 % (0-12); NEUTROPHILS # (AUTO) 4.2 X 10^3 (1.8-7.8); NEUTROPHILS % (AUTO) 62 % (42-75); PLATELET COUNT 274 10^3/uL (130-400); WHITE BLOOD COUNT 6.7 10^3/uL (4.3-11.0)
[2022-11-18 15:38] LABS: ALBUMIN 3.8 GM/DL (3.2-4.5); POTASSIUM 3.7 MMOL/L (3.6-5.0)
[2022-11-18 15:39] LABS: CALCIUM 8.5 MG/DL (8.5-10.1)
[2022-11-18 15:41] LABS: TOTAL PROTEIN 6.6 GM/DL (6.4-8.2)
[2022-11-18 15:42] LABS: BILIRUBIN,TOTAL 0.4 MG/DL (0.1-1.0)
[2022-11-18 15:44] LABS: CREATININE SERUM 0.89 MG/DL (0.60-1.30)
[2022-11-18 15:59] LABS: BILIRUBIN,URINE NEGATIVE (NEGATIVE); CLARITY,URINE CLEAR; COLOR,URINE YELLOW; GLUCOSE, URINE (UA) 3+ (NEGATIVE); KETONES,URINE TRACE (NEGATIVE); LEUKOCYTE ESTERASE ,URINE 1+ (NEGATIVE); NITRITE,URINE NEGATIVE (NEGATIVE); PH,URINE 6.5 (5-9); PROTEIN,URINE 2+ (NEGATIVE)
[2022-11-18] MEDS ORDERED: SCOPOLAMINE 1.5 MG (TRANSDERM-SCOP) PATCH TD ONE (16:00)
--- NOTE | 2022-11-18 16:04 | ED Trauma-Burn/Chemical Inh ---
HPI-Trauma Burn/Chemical Inh General Chief Complaint: Trauma EMS/Air Arrival Activat Stated Complaint: CHEMICAL TIAN Nursing Triage Note: PT ARRIVED PER [facility], PT HAS CHEMICAL TIAN FROM ANHYDROUS AMMONIA TO CHEST AND ABD. PT RATES PAIN AT THIS X 2/10. PT WAS GIVEN 100MCG FENT AND MORPHINE 10MG IV. PT WASHED OFF AMMONIA W SHIRT IN NEARBY FOND DU LAC. PT WAS WEARING PROTECTIVE FACE MASK, LONG SLEEVE SHIRT AND GLOVES. PT HAS IV #[id number] IN L AC BY EMS, IV FLUIDS NS INFUSING AT OPEN. PT HAS SMALL AREA OF REDNESS ON TIP OF NOSE. STATES PROB WHERE HE TOUCHED HIS NOSE WHEN TAKING MASK OFF. PT HAS NO RESP DISTRESS AT THIS X. Source: patient, EMS History of Present Illness Date Seen by Provider: Nov 18, 2022 Time Seen by Provider: 15:05 Initial Comments PT ARRIVES VIA EMS PT IS A GOMEZ, AND WAS IN PROCESS OF CONNECTING HOSE TO ANHYDROUS AMMONIA TANK AND IT ALL SPRAYED OUT ONTO HIS CHEST AND ABDOMEN AREA HE WAS WEARING FULL HEAD AND FACE MASK, HE WAS WEARING LONG SLEEVE SHIRT AND GLOVES, JEANS AND BOOTS HE HAS CHEMICAL TIAN TO CHEST AND ABDOMEN, TINY SPOT ON TIP OF NOSE ( PT STATES HE BRUSHED HIS NOSE WHEN HE WAS TAKING OFF HIS FACE MASK ) AND A SMALL AREA TO LEFT AC AREA. THERE WAS NO FLAMES OR FIRE THERE WAS NO SECONDARY TRAUMA HE IMMEDIATELY REMOVED HIS SHIRT AND WASHED OFF IN NEARBY FOND DU LAC. NO PAIN OR BURNING NO EYES, OR NASAL PASSAGES, OR MOUTH NO DIFFICULTY BREATHING OR SWALLOWING. NO NAUSEA/VOMITING EMS GAVE 100 MCG FENTANYL AND 10 MG MORPHINE PT STATES PAIN WAS 8/10, NOW 2/10 LAST TETANUS IS UNKNOWN PT IS INSULIN DEPENDENT DIABETIC HE HAS HAD PRIOR BACK SURGERY AND HERNIA REPAIRS. PCP: DR. SHANNON Allergies and Home Medications Allergies Coded Allergies: No Known Drug Allergies (Unverified , 01/12/21) Patient Home Medication List Home Medication List Reviewed: Yes ALPRAZolam (ALPRAZolam) 0.25 Mg Tablet, 0.25 MG PO TID PRN for ANXIETY, (Reported) Entered as Reported by: URSULA CALDERON on 01/09/21 1152 Aspirin (Aspirin) 81 Mg Tab.chew, 81 MG PO DAILY, (Reported) Entered as Reported by: URSULA CALDERON on 01/09/21 1152 Atorvastatin Calcium (Atorvastatin Calcium) 10 Mg Tablet, 10 MG PO HS, (Reported) Entered as Reported by: URSULA CALDERON on 01/09/21 1157 Docusate Sodium (Colace) 100 Mg Capsule, 100 MG PO DAILY Prescribed by: ABDIAZIZ AVILA on 01/12/21 0848 Escitalopram Oxalate (Escitalopram Oxalate) 10 Mg Tablet, 10 MG PO DAILY, (Reported) Entered as Reported by: URSULA CALDERON on 01/09/21 1152 Hydrocodone/Acetaminophen (Hydrocodone-Acetamin 5-325 mg) 1 Each Tablet, 1 EACH PO Q4H PRN for PAIN-MODERATE (5-7) Prescribed by: ABDIAZIZ AVILA on 01/12/21 0850 Insulin Aspart (Novolog) 100 Unit/1 Ml Susp, 0-20 UNITS SQ DAILY@1900, (Reported) Entered as Reported by: TRICIA KELLY on 05/28/19 175 Insulin Detemir (Levemir Flextouch) 100 Unit/1 Ml Insuln.pen, 69 UNITS SQ DAILY, (Reported) Entered as Reported by: TRICIA KELLY on 05/28/19 175 Insulin Detemir (Levemir Flextouch) 100 Unit/1 Ml Insuln.pen, 35 UNIT SQ HS, (Reported) Entered as Reported by: URSULA CALDERON on 01/09/21 115 Review of Systems Review of Systems Constitutional: no symptoms reported; No dizziness Eyes: No Symptoms Reported Ears: No Symptoms Reported Nose: See HPI Mouth: No Symptoms Reported Throat: No Symptoms to Report Respiratory: no symptoms reported; No cough Cardiovascular: No Symptoms Reported Gastrointestinal: no symptoms reported Genitourinary: no symptoms reported Musculoskeletal: no symptoms reported Skin: see HPI Psychiatric/Neurological: No Symptoms Reported Past Etvyygt-Umejbc-Yddnvw Hx Patient Social History Tobacco Use?: No Substance use?: No Alcohol Use?: No Pt feels they are or have been: No Immunizations Up To Date Tetanus Booster (TDap): Unknown Influenza Vaccine Up-to-Date: No; Not Current First/Initial COVID19 Vaccinat: done Second COVID19 Vaccination Loc: november 2020 Third COVID19 Vaccination Date: done Seasonal Allergies Seasonal Allergies: No Past Medical History Surgery/Hospitalization HX: DIABETES, BACK SURG,HERNIA SURG, HTN Surgeries: Yes (back, bilat ing hernia) Abdominal, Orthopedic Respiratory: No Currently Using CPAP: No Currently Using BIPAP: No Cardiac: No Neurological: No Genitourinary: No Gastrointestinal: Yes Abdominal Hernia Musculoskeletal: No Endocrine: Yes Diabetes, Insulin dep HEENT: No Cancer: No Psychosocial: No Integumentary: No Blood Disorders: No Family Medical History No Pertinent Family Hx Physical Exam-Burn/Chemical In Physical Exam Vital Signs Capillary Refill : Less Than 3 Seconds Height, Weight, BMI Height: 5'10.00" Weight: 186lbs. 0.0oz. 84.323346qy; 26.00 BMI Method:Estimated General Appearance: WD/WN, no apparent distress (PT IS CALM) Head: No Evidence of Injury Eyes: Bilateral Eye Normal Inspection, Bilateral Eye PERRL, Bilateral Eye EOMI Ears, Nose, Throat: Hearing Grossly Normal, No Dental Injury, Other (TINY AREA OF ERYTHEMA TO TIP OF NOSE, NO BLISTERING OR TENDERNESS. NO INTRA-NASAL INJURY. ) Neck: non-tender, full range of motion, supple, normal inspection Cardiovascular: regular rate, rhythm, no edema, no JVD, no murmur Respiratory: normal breath sounds, no respiratory distress, no accessory muscle use, other (MIXED FIRST DEGREE AND EARLY SECOND DEGREE TIAN TO MID AND LOWER ANTERIOR CHEST AND ABDOMEN. SKIN IS INTACT AT THIS TIME. ) Gastrointestinal: normal bowel sounds, soft, other (TIAN NOTED ABOVE) Back: normal inspection, no CVA tenderness, no vertebral tenderness Extremities: normal range of motion, non-tender, no pedal edema, no calf tenderness, other (MILD AREA OF ERYTHEMA TO MEDIAL LEFT AC SPACE AREA. NO BLIST ERING. FULL ROM, NO SIGNIFICANT TENDNERESS. ) Neurologic/Psychiatric: relief driller II-XII nml as tested, no motor/sensory deficits, alert, normal mood/affect, oriented x 3 Skin: normal color, warm/dry, other (TIAN NOTED. ) Rustam Coma Score Best Eye Response ([place]): (4) Open Spontaneously Best Verbal Response ([place]ust[place]): (5) Oriented Best Motor Response ([place]): (6) Obeys Commands [place] Total: 15 Progress/Results/Core Measures Results/Orders Lab Results Laboratory Tests Test 11/18/22 15:07 11/18/22 15:20 11/18/22 15:42 Range/Units Lab Scanned Report Referred Lab Report [id number] White Blood Count 6.7 4.3-11.0 10^3/uL Red Blood Count 3.86 L 4.30-5.52 10^6/uL Hemoglobin 11.4 L 13.3-17.7 g/dL Hematocrit 35 L 40-54 % Mean Corpuscular Volume 90 80-99 fL Mean Corpuscular Hemoglobin 30 25-34 pg Mean Corpuscular Hemoglobin Concent 33 32-36 g/dL Red Cell Distribution Width 12.0 10.0-14.5 % Platelet Count 274 130-400 10^3/uL Mean Platelet Volume 9.1 9.0-12.2 fL Immature Granulocyte % (Auto) 0 % Neutrophils (%) (Auto) 62 42-75 % Lymphocytes (%) (Auto) 25 12-44 % Monocytes (%) (Auto) 11 0-12 % Eosinophils (%) (Auto) 1 0-10 % Basophils (%) (Auto) 0 0-10 % Neutrophils # (Auto) 4.2 1.8-7.8 X 10^3 Lymphocytes # (Auto) 1.7 1.0-4.0 X 10^3 Monocytes # (Auto) 0.7 0.0-1.0 X 10^3 Eosinophils # (Auto) 0.1 0.0-0.3 10^3/uL Basophils # (Auto) 0.0 0.0-0.1 10^3/uL Immature Granulocyte # (Auto) 0.0 0.0-0.1 10^3/uL Sodium Level 141 135-145 MMOL/L Potassium Level 3.7 3.6-5.0 MMOL/L Chloride Level 109 H 98-107 MMOL/L Carbon Dioxide Level 22 21-32 MMOL/L Anion Gap 10 5-14 MMOL/L Blood Urea Nitrogen 13 7-18 MG/DL Creatinine 0.89 0.60-1.30 MG/DL Estimat Glomerular Filtration Rate 95 BUN/Creatinine Ratio 15 Glucose Level 99 70-105 MG/DL Calcium Level 8.5 8.5-10.1 MG/DL Corrected Calcium 8.7 8.5-10.1 MG/DL Total Bilirubin 0.4 0.1-1.0 MG/DL Aspartate Amino Transf (AST/SGOT) 17 5-34 U/L Alanine Aminotransferase (ALT/SGPT) 15 0-55 U/L Alkaline Phosphatase 43 40-136 U/L Total Protein 6.6 6.4-8.2 GM/DL Albumin 3.8 3.2-4.5 GM/DL Urine Color YELLOW Urine Clarity CLEAR Urine pH 6.5 5-9 Urine Specific Coin 1.025 H 1.016-1.022 Urine Protein 2+ H NEGATIVE Urine Glucose (UA) 3+ H NEGATIVE Urine Ketones TRACE H NEGATIVE Urine Nitrite NEGATIVE NEGATIVE Urine Bilirubin NEGATIVE NEGATIVE Urine Urobilinogen 1.0 < = 1.0 MG/DL Urine Leukocyte Esterase 1+ H NEGATIVE Urine RBC (Auto) TRACE-I H NEGATIVE Urine RBC 2-5 H /HPF Urine WBC 0-2 /HPF Urine Squamous Epithelial Cells RARE /HPF Urine Crystals NONE /LPF Urine Bacteria FEW H /HPF Urine Casts NONE /LPF Urine Mucus MODERATE H /LPF Urine Culture Indicated YES Micro Results Microbiology 11/18/22 Urine Culture - Final, Complete Growth Consistent My Orders Orders - JAZMIN BERRY DO Ed Iv/Invasive Line Start (11/18/22 15:17) O2 (11/18/22 15:17) Monitor-Rhythm Ecg Trace Only (11/18/22 15:17) Cbc With Automated Diff (11/18/22 15:17) Comprehensive Metabolic Panel (11/18/22 15:17) Ua Culture If Indicated (11/18/22 15:17) Ed Iv/Invasive Line Start (11/18/22 15:17) Lactated Ringers (Lr 1000 Ml Iv Solution (11/18/22 15:30) Dipht,Pertuss(Acell),Tet Adult (Boostrix (11/18/22 15:30) Chest 1 View, Ap/Pa Only (11/18/22 15:20) Scopolamine Patch (Transderm-Scop Patch) (11/18/22 16:00) Urine Culture (11/18/22 15:42) Vaccine Administration Single (11/18/22 ) Medications Given in ED Vital Signs/I&O Blood Pressure Mean: 111 Progress Progress Note : Progress Note LEVEL 2 TRAUMA ACTIVATION PT IMMEDIATELY TAKEN TO SHOWER ROOM AND THOROUGHLY SHOWERED, AND PT'S CLOTHING REMOVED, ON ARRIVAL GIVEN: -FENTANYL FOR PAIN -WARM IV FLUIDS -DPT VACCINE COOL COMPRESSES TO TIAN INITIALLY, THEN DRY DRESSINGS PLACED PRIOR TO TRANSFER. NO DETERIORATION IN PT'S CONDITION DURING ER STAY. DISCUSSED ANTICIPATED COURSE, NEED FOR TRANSFER WITH PT AND , AND THEY AGREE TO PLAN Departure Communication (Admissions) 1529--SPOKE WITH DR. AVILA, TRAUMA SURGEON, AGREES TO TRANSFER TO BURN UNIT. 1531--CALLED [facility]--SPOKE WITH CLEMENTE, WITH BURN UNIT, PT HAS BEEN ACCEPTED BY DR. HILL, BURN [facility] TRAUMA SURGEON. THERE IS NO GROUND EMS AVAILABLE FOR TRANSFER. STAFF ARE CALLING [facility]--[facility] FROM [place] WILL TRANSPORT PT--ETA 1 HOUR 1656--[facility] HERE FOR TRANSPORT Impression Primary Impression: CHEMICAL TIAN FROM ANHYDROUS AMMONIA Additional Impressions: Zmsqufjnxd-bnoibyprk-seosayt (DPT) vaccination administered at current visit IDDM (insulin dependent diabetes mellitus) Disposition: 02 XFER SHT-TRM HOSP Condition: Stable Transfer Transfer Reason: Exceeds level of care (NEEDS BURN UNIT UNAVAILABLE HERE) Transfer Facility: [facility] Method of Transfer: Air Departure-Patient Inst. Referrals: RICHI SHANNON DO (PCP/Family) Primary Care Physician Images Full Body/Extremities Full Progress SEE PAPER DIAGRAM FOR IMAGES JAZMIN BERRY DO Nov 18, 2022 16:04
[2022-11-18 16:05] LABS: BACTERIA,URINE FEW /HPF; SQUAMOUS EPITHELIAL CELL,UR RARE /HPF; WBC,URINE 0-2 /HPF
[2022-11-18 17:05] VITALS: BP 123/75
== END 2022-11-18 17:10 ==
LOC: ER 15:07 → EDUNIT# 15:07 → ER 17:10
DX: T59.891A Toxic effect of other specified gases, fumes and vapors, accidental (unintentional), initial encounter (principal); T21.61XA Corrosion of second degree of chest wall, initial encounter; T21.62XA Corrosion of second degree of abdominal wall, initial encounter; E11.9 Type 2 diabetes mellitus without complications; Z79.4 Long term (current) use of insulin; Z23 Encounter for immunization; Z87.19 Personal history of other diseases of the digestive system; Z98.890 Other specified postprocedural states
CPT/HCPCS: 36415; 71045; 80053; 81000; 85025; 87088; 90471; 90715; 93041; 96360